=== PATIENT | female | born 1975 | race Caucasian/White ===

== ENCOUNTER 2020-04-05 15:15 | Outpatient (CLI) | payer BC, SELFPAY ==
--- NOTE | ~2020-04-05 | MM_ITS ---
EXAMINATION: MM screening juvencio BI w david HISTORY: Screening TECHNIQUE: Craniocaudal and mediolateral oblique 3-D tomosynthesis images were obtained and synthetic 2-D images were generated. CAD analysis was submitted and interpreted. COMPARISON: No prior mammogram is available for comparison at this institution. BREAST PARENCHYMAL COMPOSITION: There are scattered areas of fibroglandular density. FINDINGS: There is no evidence of suspicious mass, calcification, or architectural distortion to sugg est malignancy in either breast. There has been no suspicious interval change. IMPRESSION: 1. No mammographic evidence of malignancy. 2. Recommend routine screening mammography in one year. BI-RADS Category 1: Negative Reviewed, dictated and finalized at location A.
== END 2020-04-05 15:16 | disposition home or self-care (01) ==
LOC: ANHIMG 15:17
PROVIDERS: PCP Internal Medicine; Visit Provider Physician Assistant
DX: Z12.31 Encounter for screening mammogram for malignant neoplasm of breast (principal)
CPT/HCPCS: 77063; 77067

== ENCOUNTER 2020-11-19 04:12 | Emergency (ER) | payer BC, SELFPAY ==
[2020-11-19] VITALS (11 sets, daily range): BP systolic 136–169; BP diastolic 71–98; PULSE 67–85; RESP 14–24; O2SAT 94–100
--- NOTE | ~2020-11-19 | CT_ITS ---
EXAMINATION: CT abdomen pelvis wo con DATE: 11/19/2020 05:13 INDICATION: Left flank pain. TECHNIQUE: Computed tomography (CT) of the abdomen and pelvis was performed without intravenous contr ast. Automated exposure control and iterative reconstruction technique were employed. The dose-length product was 1277.75 mGy-cm. COMPARISON: None. FINDINGS: The visualized portions of the lung bases demonstrate mild atelectasis. No pleural effusion . The heart size is normal. No pericardial effusion. The liver, gallbladder, spleen, pancreas, adrena l glands, and right kidney are normal. There is mild left hydronephrosis and hydroureter. There is a 2 mm calcification at the left ureterovesicular junction. Pelvic floor relaxation is noted. There are no dilated loops of bowel. The appendix is not visualized. There are no pathologically enlarged lymp h nodes. There is no free intraperitoneal fluid. There is mild thoracolumbar spondylosis. IMPRESSION: 1. 2 mm stone at the left ureterovesicular junction with mild left hydronephrosis and hydroureter. Reviewed, dictated and finalized at location A. IMPRESSION: 1. 2 mm stone at the left ureterovesicular junction with mild left hydronephro sis and hydroureter.
[2020-11-19] MEDS: KETOROLAC 30 MG/ML VIAL (*BKC) IV PUSH (04:27)
[2020-11-19] MEDS: SODIUM CHLORIDE 0.9% IV 1,000 ML 999 ML IV CONT (04:27)
[2020-11-19] MEDS: MORPHINE SULFATE (*CRX) 4 MG/ML INJ IV PUSH ×2 (04:29→06:58)
[2020-11-19 04:37] LABS: Basophils Percent Auto 0.3 % (0.2-1.2); Eosinophils Absolute Auto 0.2 K/mm3 (0-0.3); Eosinophils Percent Auto 2.8 % (0-4.4); Hematocrit 39.6 % (37.0-47.0); Hemoglobin 12.2 g/dL (12.0-15.0); Immature Granulocyte Absolute 0.04 K/mm3 (0.00-0.031); Immature Granulocyte Percent A 0.5 % (0-0.5); Lymphocytes Absolute Auto 2.37 K/mm3 (0.9-3.2); Lymphocytes Percent Auto 31.6 % (18.3-44.2); Mean Corpuscular HGB Conc 30.8 g/dl (32-36); Mean Corpuscular Hemoglobin 25.3 pg (26-34); Mean Platelet Volume 9.8 fl (7.4-10.4); Monocytes Absolute Auto 0.5 K/mm3 (0.1-0.6); Monocytes Percent Auto 6.4 % (2.6-8.5); Neutrophils Absolute Auto 4.4 K/mm3 (1.3-6.7); Neutrophils Percent Auto 58.4 % (45.5-73.1); Platelet Count Result 335 k/mm3 (150-375); Red Blood Count 4.83 M/mm3 (4.2-5.4); Red Cell Distribution Width 14.4 % (11.5-14.5); White Blood Count 7.5 K/mm3 (4.5-10.0)
[2020-11-19 04:48] LABS: Anion Gap 10 mmol/L (8-16); Blood Urea Nitrogen 16 mg/dL (7-17); Calcium 9.4 mg/dL (8.4-10.2); Carbon Dioxide 26 mmol/L (22-30); Chloride 107 mmol/L (98-107); Estimated CRCL calculation 98 ml/min; Estimated Glomerular Filt Rate > 60; Glucose 148 mg/dL (65-105); Potassium 3.4 mmol/L (3.4-5.0); Sodium 143 mmol/L (137-145)
[2020-11-19 05:06] LABS: Add Urine Microscopic? YES; Appearance Urine Clear (Clear); Bilirubin Urine Negative (Negative); Blood Urine 2+ (Negative); Color Urine Yellow (Yellow); Glucose Urine UA 1+ mg/dL (Negative); Ketones Urine Negative (Negative); Leukocyte Esterase Ur Negative LEU/UL (Negative); Mucus Urine Moderate /lpf; Nitrate Urine Negative (Negative); Protein Urine 2+ mg/dL (Negative); RBC Urine 51-75 /hpf (0-2); Specific Grav Ur 1.027 (1.001-1.035); Squamous Epithelial Cell Urine Occasional /hpf (Few); WBC Urine 0-3 /hpf
--- NOTE | 2020-11-19 05:33 | ED.ABDPAIN ---
HPI - Abdominal Pain General Chief Complaint: Abdominal Pain <Edwardo Barrera MD - Last Filed: 11/19/20 19:16> Stated Complaint: left flank pain <Edwardo Barrera MD - Last Filed: 11/19/20 19:16> Time Seen by Provider: 11/19/20 04:16 <Edwardo Barrera MD - Last Filed: 11/19/20 19:16> History of Present Illness HPI narrative: Patient is a 45-year-old female who presents ER with sudden onset abdominal pain. Began in her left back and is radiating down into her lower abdomen. Severe nature. No aggravating or alleviating factors. Has had some nausea. No diaphoresis. No history of kidney stones. Denies urinary frequency/urgency/hematuria. <Edwardo Barrera MD - Last Filed: 11/19/20 19:16> Related Data Allergies/Adverse Reactions: Allergies Allergy/AdvReac Type Severity Reaction Status Date / Time doxycycline Allergy Severe SOB, Verified 11/19/20 04:24 hives, rash erythromycin base Allergy Severe SOB Verified 11/19/20 04:24 heparin Allergy Severe High blood Verified 11/19/20 04:24 pressure and anaphylaxis latex Allergy Severe SOB Verified 11/19/20 04:24 shellfish derived Allergy Intermediate hands go Verified 11/19/20 04:24 numb Penicillins Allergy Mild Hives Verified 11/19/20 04:24 strawberry Allergy Mild Rash Verified 11/19/20 04:24 Sulfa (Sulfonamide Allergy Mild Unknown Verified 11/19/20 04:24 Antibiotics) <Edwardo Barrera MD - Last Filed: 11/19/20 19:16> Review of Systems Review of Systems: All systems reviewed & are unremarkable except as noted in HPI and below <Edwardo Barrera MD - Last Filed: 11/19/20 19:16> Constitutional: Constitutional: Denies chills and Denies fever(s) <Edwardo Barrera MD - Last Filed: 11/19/20 19:16> Gastrointestinal: Gastrointestinal: Reports abdominal pain, Reports nausea and Denies vomiting <Edwardo Barrera MD - Last Filed: 11/19/20 19:16> Genitourinary: Genitourinary: Denies hematuria, Denies nocturia, Denies dysuria and Reports flank pain <Edwardo Barrera MD - Last Filed: 11/19/20 19:16> PMFSH Past Medical History Medical History: Medical History (Updated 11/19/20 @ 07:40 by Shankar Rosales MD) Anxiety Asthma Diabetes type 2, controlled Hyperlipidemia Hypertension Seizure <Edwardo Barrera MD - Last Filed: 11/19/20 19:16> Surgical History Surgical History: Surgical History History of appendectomy History of hysterectomy <Edwardo Barrera MD - Last Filed: 11/19/20 19:16> Family History Family History: Family History Mother Diabetes mellitus Patient's mother is in good health Father Patient's father is Malignant neoplasm of prostate Family history of malignant neoplasm of bone Sibling Patient's sister is in good health Grandparent Family history of lung cancer Family history of malignant neoplasm of breast in first degree relative Family history of malignant neoplasm of kidney <Edwardo Barrera MD - Last Filed: 11/19/20 19:16> Social History Social History: Social History Smoking packs per day: 2 Smoking cigarettes per day: 40.0 Years smoked: 10 Smoking pack-years: 20.00 Smoking status: Former smoker Second hand tobacco smoke exposure: No Alcohol intake: never Substance use: never <Edwardo Barrera MD - Last Filed: 11/19/20 19:16> Exam Narrative: Exam Narrative: GENERAL: Uncomfortable-appearing, well-nourished, and in moderate distress. HEAD: Normocephalic, atraumatic. ENT: Mucous membranes moist. CHEST: Clear to auscultation. No respiratory distress. HEART: Regular rate and rhythm. Normal peripheral pulses. ABDOMEN: Soft, nontender, nondistended. EXTREMITIES: Normal range of motion. No edema. NEURO: Alert and oriented x3. PSYCH: Normal moo
== END 2020-11-19 07:54 | disposition home or self-care (01) ==
PROVIDERS: Emergency Medicine; Emergency Provider Emergency Medicine; PCP Internal Medicine
DX: N13.2 Hydronephrosis with renal and ureteral calculous obstruction (principal); J45.909 Unspecified asthma, uncomplicated; E11.9 Type 2 diabetes mellitus without complications; E78.5 Hyperlipidemia, unspecified; I10 Essential (primary) hypertension; Z79.84 Long term (current) use of oral hypoglycemic drugs; Z87.891 Personal history of nicotine dependence
CPT/HCPCS: 36415; 74176; 80048; 81001; 85025; 96374; 96375; 96376; 99284; J1885; J2270; J7030

== ENCOUNTER 2022-02-14 19:57 | Emergency (ER) | payer BC, SELFPAY ==
[2022-02-14] VITALS (20 sets, daily range): BP systolic 102–154; BP diastolic 50–103; PULSE 58; RESP 16; TEMP 37; O2SAT 91–100
--- NOTE | ~2022-02-14 | CT_ITS ---
EXAMINATION: CT abdomen pelvis w con DATE: 02/14/2022 21:22 INDICATION: Kidney stone, diverticulitis TECHNIQUE: Computed tomography (CT) of the abdomen and pelvis was performed with 100 mL Omnipaque-350 intravenous contrast. Automated exposure control and iterative reconstruction technique were employe d. The dose-length product was 1676.04 mGy-cm. COMPARISON: 11/19/2020. FINDINGS: Lower thorax: Left basilar atelectasis Liver: Steatosis. Hepatomegaly. Biliary/Gallbladder: Gallbladder is normal. No bile duct dilation. Pancreas: No mass or duct dilation. Spleen: Normal. Adrenals:No mass. Kidneys: No mass, stone, or hydronephrosis. Mild left perinephric stranding. Linear somewhat wedge-sh aped left lower pole hypodensities. 3 mm left UVJ calcification. Mild caliectasis and pelviectasis on the left. GI tract: No small or large bowel dilation. Appendix not visualized. Mesentery/Peritoneum: No ascites, mass, or free air. Retroperitoneum: No mass. Pelvis: Uterus is absent, otherwise the pelvic organs are within normal limits. Soft Tissues: Soft tissues and body wall unremarkable. Bones: No acute osseous finding. IMPRESSION: 3 mm left UPJ stone causing mild obstructive uropathy. Linear and wedge-shaped left inferior pole hyp odensities may represent pyelonephritis, acute focal nephritis, or less likely renal infarct. Reviewed, dictated and finalized at location K. IMPRESSION: 3 mm left UPJ stone causing mild obstructive uropathy. Linear and wedge-shaped left inferior pole hypodensities may represent pyelonephritis, acute focal neph ritis, or less likely renal infarct.
--- NOTE | 2022-02-14 20:24 | ED.ABDPAIN ---
HPI - Abdominal Pain General Chief Complaint: Abdominal Pain Stated Complaint: abd pain Time Seen by Provider: 02/14/22 20:22 Source: patient and family Mode of arrival: ambulatory Limitations: no limitations History of Present Illness HPI narrative: 47 years old white female presents with sudden onset of left lower quadrant pain radiating to left flank pain 1-1/2-hour prior to arrival to the emergency room associated with nausea. Patient denies any fever, chills, vomiting or urinary symptoms. History of kidney stone, hypertension, hyperlipidemia, diabetes, asthma, depression. Patient does not smoke or drink or uses drugs. Related Data Allergies Allergy/AdvReac Type Severity Reaction Status Date / Time doxycycline Allergy Severe SOB, Verified 02/14/22 19:57 hives, rash erythromycin base Allergy Severe SOB Verified 02/14/22 19:57 heparin Allergy Severe High blood Verified 02/14/22 19:57 pressure and anaphylaxis latex Allergy Severe SOB Verified 02/14/22 19:57 shellfish derived Allergy Intermediate hands go Verified 02/14/22 19:57 numb Penicillins Allergy Mild Hives Verified 02/14/22 19:57 strawberry Allergy Mild Rash Verified 02/14/22 19:57 Sulfa (Sulfonamide Allergy Mild Unknown Verified 02/14/22 19:57 Antibiotics) Review of Systems Review of Systems: All systems reviewed & are unremarkable except as noted in HPI and below PMFSH Past Medical History Medical History Anxiety Asthma Diabetes type 2, controlled Hyperlipidemia Hypertension Seizure Surgical History Surgical History History of appendectomy History of hysterectomy Family History Family History Mother Diabetes mellitus Patient's mother is in good health Father Patient's father is Malignant neoplasm of prostate Family history of malignant neoplasm of bone Sibling Patient's sister is in good health Grandparent Family history of lung cancer Family history of malignant neoplasm of breast in first degree relative Family history of malignant neoplasm of kidney Social History Social History Smoking packs per day: 2 Smoking cigarettes per day: 40.0 Years smoked: 10 Smoking pack-years: 20.00 Smoking status: Former smoker Second hand tobacco smoke exposure: No Alcohol intake: never Substance use: never Exam Narrative: General appearance: Well-developed, well-nourished Skin: Normal color Head: Normocephalic, nontraumatic Eyes: Clear conjunctiva ENT: Oropharynx normal, ears normal, nose normal Neck: Supple, nontender Chest and respiratory: Airway patent, no respiratory distress, no accessory muscle use Heart: Regular rate/rhythm Abdomen: Soft, mild to moderate tenderness left lower quadrant and left flank area, no guarding or rebound, quiet bowel sounds Vascular: Normal peripheral pulses, normal capillary refill. Musculoskeletal: Normal range of motion, nontender back Neurologic: Alert and oriented ?3, [employer] is normal as tested, no gross motor deficit Course Vital Signs Vital signs: Vital Signs Temperature 98.6 F 02/14/22 19:59 Pulse Rate 58 L 02/14/22 19:59 Respiratory Rate 16 02/14/22 19:59 Blood Pressure 154/66 H 02/14/22 19:59 Pulse Oximetry 100 02/14/22 19:59 Temperature 98.6 F 02/14/22 19:59 Pulse Rate 58 L 02/14/22 19:59 Respiratory Rate 16 02/14/22 19:59 Blood Pressure 125/50 L 02/14/22 23:31 Pulse Oximetry 93 02/14/22 23:31 MDM - Abdominal Pain Lab D
[2022-02-14] MEDS: ONDANSETRON INJ 4 MG/2 ML VIAL IV PUSH (20:44)
[2022-02-14] MEDS: SODIUM CHLORIDE 0.9% IV 1,000 ML 999 ML IV CONT (20:44)
[2022-02-14] MEDS: HYDROmorphone HCL INJ (*CRX) 1 MG/ML SYR 0.5 MG IV PUSH ×2 (20:44→21:34)
[2022-02-14 20:53] LABS: Basophils Absolute Auto 0.1 K/mm3 (0.0-0.1); Basophils Percent Auto 0.5 % (0.2-1.2); Eosinophils Absolute Auto 0.2 K/mm3 (0-0.3); Eosinophils Percent Auto 1.5 % (0-4.4); Hematocrit 41.4 % (37.0-47.0); Hemoglobin 13.1 g/dL (12.0-15.0); Immature Granulocyte Absolute 0.06 K/mm3 (0.00-0.031); Immature Granulocyte Percent A 0.6 % (0-0.5); Lymphocytes Absolute Auto 1.95 K/mm3 (0.9-3.2); Lymphocytes Percent Auto 18.7 % (18.3-44.2); Mean Corpuscular HGB Conc 31.6 g/dl (32-36); Mean Corpuscular Hemoglobin 25.6 pg (26-34); Mean Corpuscular Volume 80.9 fl (80-100); Mean Platelet Volume 10.7 fl (7.4-10.4); Monocytes Absolute Auto 0.4 K/mm3 (0.1-0.6); Neutrophils Absolute Auto 7.8 K/mm3 (1.3-6.7); Neutrophils Percent Auto 74.7 % (45.5-73.1); Platelet Count Result 287 k/mm3 (150-375); Red Blood Count 5.12 M/mm3 (4.2-5.4); Red Cell Distribution Width 14.2 % (11.5-14.5); White Blood Count 10.4 K/mm3 (4.5-10.0)
[2022-02-14 21:05] LABS: Alanine Aminotransferase 27 U/L (6-35); Albumin Level 4.6 g/dL (3.5-5.1); Alkaline Phosphatase 71 U/L (38-126); Anion Gap 15 mmol/L (8-16); Aspartate Amino Transferase 36 U/L (14-36); Bilirubin,Total 0.4 mg/dL (0.2-1.3); Blood Urea Nitrogen 16 mg/dL (7-17); Calcium 9.9 mg/dL (8.4-10.2); Carbon Dioxide 20 mmol/L (22-30); Chloride 101 mmol/L (98-107); Estimated CRCL calculation 95 ml/min; Estimated Glomerular Filt Rate > 60; Glucose 221 mg/dL (65-110); Lipase 67 U/L (23-300); Sodium 136 mmol/L (137-145)
[2022-02-14 22:46] LABS: Appearance Urine Clear (Clear); Bilirubin Urine Negative (Negative); Blood Urine 3+ (Negative); Color Urine Yellow (Yellow); Glucose Urine UA Trace mg/dL (Negative); Ketones Urine Negative (Negative); Leukocyte Esterase Ur Negative LEU/UL (Negative); Nitrate Urine Negative (Negative); Protein Urine Trace mg/dL (Negative); Urobilinogen Urine 0.2 mg/dL (<2.0); pH Urine 5.5 (5.0-9.0)
[2022-02-14 23:09] LABS: Mucus Urine Rare /lpf; RBC Urine >75 /hpf (0-2); Squamous Epithelial Cell Urine Rare /hpf (Few)
[2022-02-14] MEDS: HYDROcodone/acetaminophen (*CRX) 5-325 MG TABLET 2 TAB PO (23:12)
[2022-02-14] MEDS: KETOROLAC 30 MG/ML VIAL (*BKC) (23:13)
[2022-02-14 23:14] LABS: Add Urine Microscopic? YES
[2022-02-15] VITALS: BP 95/55; O2SAT 95
[2022-02-15 00:01] VITALS: O2SAT 92
[2022-02-15 00:15] VITALS: BP 107/59; O2SAT 94
[2022-02-15 00:16] VITALS: O2SAT 94
[2022-02-15 00:30] VITALS: BP 108/59; O2SAT 97
--- NOTE | 2022-02-15 00:37 | PC.NURSE ---
Called lab and was reported no WBCs in urine. notified
[2022-02-15 00:46] VITALS: BP 102/55; O2SAT 94
== END 2022-02-15 01:02 | disposition home or self-care (01) ==
PROVIDERS: Emergency Medicine; Emergency Provider Emergency Medicine; PCP Physician Assistant
DX: N13.9 Obstructive and reflux uropathy, unspecified (principal); N20.1 Calculus of ureter; I10 Essential (primary) hypertension; E78.5 Hyperlipidemia, unspecified; J45.909 Unspecified asthma, uncomplicated; E11.9 Type 2 diabetes mellitus without complications; F32.A Depression, unspecified; Z87.442 Personal history of urinary calculi; Z87.891 Personal history of nicotine dependence; Z79.84 Long term (current) use of oral hypoglycemic drugs
CPT/HCPCS: 36415; 51701; 74177; 80053; 81001; 83690; 85025; 96361; 96374; 96375; 96376; 99284; A9270; J1170; J1885; J2405; J7030; Q9967

== ENCOUNTER 2022-02-16 15:27 | Outpatient (CLI) | payer BC, SELFPAY ==
--- NOTE | ~2022-02-16 | XR_ITS ---
EXAMINATION: XR abdomen/kub 1V INDICATION: Left ureteral stone TECHNIQUE: Supine views of the abdomen were obtained on 2 radiographs. COMPARISON: CT, 02/14/2022 FINDINGS: The previously described left ureteral stone appears to project over the left L3 transverse process. A moderate volume of colonic stool is present. Phleboliths are noted in the pelvis. The vis ualized osseous structures are unremarkable. IMPRESSION: 1. Possible left ureteral stone projecting over the left L3 transverse process. Reviewed, dictated and finalized at location B.
== END 2022-02-16 15:28 | disposition home or self-care (01) ==
PROVIDERS: PCP Physician Assistant; Visit Provider Nurse Practitioner Adult Health
DX: N20.1 Calculus of ureter (principal)
CPT/HCPCS: 74018

== ENCOUNTER 2022-02-20 01:44 | Day surgery (SDC) | payer BC, SELFPAY ==
--- NOTE | 2022-02-19 08:55 | PC.NURSE ---
Report to the Outpatient Waiting Room, entrance under the green pavilion located off [facility], at time _1000 on date _02/20/22 . OR Time: _1200 . - You and your visitor will be asked to self-screen and do not enter if you have any COVID symptoms. - Only one visitor and NO children visitors are allowed at this time. - The patient visitor is requested to leave or wait in car when not with patient due to restrictions. - A mask is required within the hospital. Patients may have clear liquids (water, carbonated beverages, clear teas, apple juice) until 3 hours prior to surgery with a maximum of 20 ounces. - No food from midnight until time of surgery - Infants may have breast milk until 4 hours before surgery, infant formula 6 hours prior to surgery. - Children will be allowed to drink immediately following surgery. If applicable, please bring a bottle or sippy cup to assist with drinking. Juice, water, soda, and popsicles are readily available. For infants on formula, please bring formula the day of surgery. Pacifiers are allowed. Take the following medications with a SIP of water the morning of surgery: ___LORAZEPAM IF NEEDED,SERTRALINE Medications to discontinue per physician NONE Date to take last dose Please no make-up, nail citizen of [place], hairspray, perfume, deodorant, or body powder the day of surgery. No jewelry (including any body piercings) or valuables the day of surgery, leave them at home. Please take a shower or bath the night before, or the morning of, surgery with an antibacterial soap. Wear comfortable, loose fitting clothing. Children are encouraged to wear pajamas. - Jewelry must be removed prior to entering the operating room. Rings and piercings that are not removed may be cut off. - The hospital will not accept responsibility for valuables. - Please leave all valuables, including medications, at home the day of surgery. If you are going home after surgery, a licensed wedding transportation driver must drive you home. - NO public transportation without another adult. - We recommend that an adult stay with you for 24 hours following discharge. - We also recommend that you do not drive, make important decision, drink alcoholic beverages, or take any drugs that were not prescribed by your health care provider for at least 24 hours after your discharge time. For Pediatric surgeries, we recommend two adults accompany the child home (only one inside the building at this time). Follow any additional instructions given to you from your surgeon. If you or anyone in your household have experienced Covid symptoms in the past week, please notify your surgeon or the nurse liaison at the phone number below for possible testing. Telephone instructions given to __PATIENT and asked if any additional questions and then verbalized understanding. Patient advised to call surgeon office or pre surgery nurse liaison [phone] if any additional questions.
[2022-02-19 09:13] VITALS: BMI 47.8
--- NOTE | 2022-02-19 13:18 | WPDANESEPPF ---
Anes - Initial Pre Proc Eval Procedure: Operation Date: 02/20/22 12:00 Proposed Procedures p Cystoscopy, Left Ureteroscopy, Possible Left Retrograde Pyelogram, Possible Left Stone Extraction, Possible Left Stent Placement, Possible Holmium Laser Procedure - Norm Hinkle MD Date/Time: 02/19/22 13:18 Surgeon: Norm Hinkle MD Pre Op Diagnosis: left ureteral stone Patient Data Age: 47 Gender: F Height: 1.6 m Weight: 122.5 kg Allergies Allergy/AdvReac Type Severity Reaction Status Date / Time doxycycline Allergy Severe SOB, Verified 02/19/22 08:42 hives, rash erythromycin base Allergy Severe SOB Verified 02/19/22 08:42 heparin Allergy Severe High blood Verified 02/19/22 08:42 pressure and anaphylaxis latex Allergy Severe SOB Verified 02/19/22 08:42 shellfish derived Allergy Intermediate hands go Verified 02/19/22 08:42 numb Penicillins Allergy Mild Hives Verified 02/19/22 08:42 strawberry Allergy Mild Rash Verified 02/19/22 08:42 Sulfa (Sulfonamide Allergy Mild Unknown Verified 02/19/22 08:42 Antibiotics) Home Medications Medication Instructions Recorded Confirmed Type lisinopril 10 1 tablet PO DAILY #90 tabs 03/01/21 02/19/22 Rx mg-hydrochlorothiazide 12.5 mg tablet zolpidem 10 mg tablet 10 mg PO QHS PRN insomnia #20 tabs 10/11/21 02/19/22 Rx lorazepam 0.5 mg tablet 0.5 mg PO DAILY PRN anxiety #10 12/08/21 02/19/22 Rx tabs pravastatin 40 mg tablet See Rx Instructions .Route 12/29/21 02/19/22 Rx .COMPLEX #30 tabs sertraline 50 mg tablet 50 mg PO DAILY #90 tabs 01/16/22 02/19/22 Rx acetaminophen 500 mg tablet 1,000 mg PO TID PRN syeda 7 days #42 02/15/22 02/19/22 Rx tabs hydrocodone 5 mg-acetaminophen 325 1 tablet PO Q4H PRN pain 3 days 02/15/22 02/19/22 Rx mg tablet #10 tabs ibuprofen 800 mg tablet 800 mg PO TID PRN pain 7 days #21 02/15/22 02/19/22 Rx tabs ondansetron 4 mg disintegrating 4 mg PO Q8H PRN nausea and 02/15/22 02/19/22 Rx tablet vomiting #10 tabs albuterol sulfate 90 mcg/actuation 2 inh inhalation Q4H PRN Shortness 02/19/22 02/19/22 History breath activated powder inhaler Of Breath metformin 500 mg tablet,extended 500 mg PO BID #90 tabs 02/19/22 Rx release 24 hr Patient hx anesthesia problems: none Family hx anesthesia problems: none Results Review: All pre-operative results and documents have been reviewed as part of the pre-operative evaluation. [facility] Past Medical History Medical History Anxiety Asthma Diabetes type 2, controlled Hyperlipidemia Hypertension Seizure Surgical History Surgical History History of appendectomy History of hysterectomy Family History Family History Mother Diabetes mellitus Patient's mother is in good health Father Patient's father is Malignant neoplasm of prostate Family history of malignant neoplasm of bone Sibling Patient's sister is in good health Grandparent Family history of lung cancer Family history of malignant neoplasm of breast in first degree relative Family history of malignant neoplasm of kidney Social History Social History Smoking packs per day: 2 Smoking cigarettes per day: 40.0 Years smoked: 10 Smoking pack-years: 20.00 Smoking status: Former smoker Tobacco type: cigarettes Second hand tobacco smoke exposure: No Smoking end date: 06/24/99 Alcohol intake: never Substance use: never Living arrangements: with family Spiritual care concerns: No Anes - Eval Final PreProcedure Day of Procedure 02/19/22 13:18 Patient weight: morbidly obese Heart: regular rate and rhythm Lungs: clear to auscultation and normal air movement Airway: Mallampati scale class II Neurological: alert and oriented [place]
[2022-02-20] VITALS (13 sets, daily range): BP systolic 126–153; BP diastolic 73–86; PULSE 54–80; RESP 10–25; TEMP 36.7–37.2; O2SAT 94–100
--- NOTE | ~2022-02-20 | XR_ITS ---
EXAMINATION: XR retrograde pyelo w/stent LT DATE: 02/20/2022 13:15 CDT INDICATION: RETRO/STENT STONE EXTRACTION . TECHNIQUE: 5 fluoroscopic images of the abdomen and pelvis were obtained during left retrograde pyelo graphy with stent placement performed by the surgeon. I was not present in the operating room. Fluoro scopy exposure time was 12.5 seconds. Cumulative dose was 0.03924 mGy2. COMPARISON: CT abdomen and pelvis 02/20/2022 FINDINGS: Cannulation, wire access contrast filling of the left collecting system. Suggestion of calyceal blunt ing. Following stent deployment, proximal coil in the renal pelvis, distal coil urinary bladder. IMPRESSION: Fluoroscopic documentation of left retrograde pyelography with stent placement. Please refer to the o perative note for complete procedural details . Reviewed, dictated and finalized at location K. IMPRESSION: Fluoroscopic documentation of left retrograde pyelography with stent placement. Please refer to the operative note for complete procedural details .
--- NOTE | ~2022-02-20 | CT_ITS ---
EXAMINATION: CT abdomen pelvis wo con DATE: 02/20/2022 11:06 INDICATION: Left ureteral stone. TECHNIQUE: Computed tomography (CT) of the abdomen and pelvis was performed without intravenous contr ast. Automated exposure control and iterative reconstruction technique were employed. The dose-length product was 1522.49 mGy-cm. COMPARISON: CT abdomen and pelvis 02/14/2022 FINDINGS: The visualized portions of the lung bases demonstrate minimal atelectasis. No pleural effus ion. The heart size is normal. No pericardial effusion. There is diffuse hepatic steatosis. The gallb ladder, spleen, pancreas, adrenal glands, and kidneys are normal. There is a 3 mm stone in distal lef t ureter. There are no dilated loops of bowel. The appendix is not visualized. There are no pathologi felicia enlarged lymph nodes. There is no free intraperitoneal fluid. There is mild thoracolumbar spond ylosis. IMPRESSION: 1. 3 mm stone in distal left ureter. No hydronephrosis. Reviewed, dictated and finalized at location A.
--- NOTE | 2022-02-20 09:36 | ECG_ITS ---
Measurements Intervals [place] Rate: 63 P: 34 PA: 182 QRS: 12 QRSD: 104 T: 21 QT: 424 QTc: 437 Interpretive Statements SINUS RHYTHM NO PREVIOUS ECG AVAILABLE FOR COMPARISON Electronically Signed On 02-20-2022 11:43:49 CDT by Andrés Sam M.D.
[2022-02-20 10:47] LABS: Glucose Point of Care 127 mg/dl (65-105)
[2022-02-20] MEDS: LACTATED RINGERS 1,000 ML 30 ML IV CONT (11:00)
[2022-02-20] MEDS: SCOPOLAMINE 1.5 MG PATCH TRANSDERM (12:29)
--- NOTE | 2022-02-20 12:52 | WPDHPUPDATE1 ---
History and Physical Update Update Date/Time: 02/20/22 12:52 History and Physical has been reviewed, including an updated exam of the patient. There are NO changes in the patient's condition. Risks, benefits, and alternatives have been discussed and questions answered. Patient agrees to proceed with procedure. Proceed with cystoscopy, left retrograde pyelogram, left ureteroscopy with stone extraction, possible laser stent placement.
[2022-02-20] MEDS: ceFAZolin 3 GM/D5W 100 ML 100 ML IVPB (13:19)
[2022-02-20] MEDS: LIDOCAINE HCL 2% GEL UROJET 10 ML PKG MUCOUS MEM (13:44)
--- NOTE | 2022-02-20 13:55 | W.PM.PROC2 ---
Procedure Note - Detailed Date of Procedure 02/20/22 Pre-op Diagnosis left ureteral stone Post-op Diagnosis Same Procedure Performed Cystoscopy, left retrograde pyelogram, left ureteroscopy with stone extraction, left stent placement 4.8 Norwegian contour Surgeon Norm Hinkle MD Anesthesia General Description of Procedure Patient is taken the operative suite correctly identified. Once anesthesia was obtained she was placed in dorsal lithotomy position and prepped and draped usual sterile fashion. Twenty-two Norwegian scope was inserted the bladder. There were no tumors noted. I could not cannulate a wire past the stone using the cystoscope. I thus used a rigid ureteral scope to into the orifice. A wire was placed alongside the stone. We then used an escape basket to retrieve the stone 1 piece. Reinspection revealed no residual stones. Pyelogram was then performed to confirm placement of the stent in the renal pelvis. 4.8 Norwegian contour stent was then placed with the proximal end coiled in the renal pelvis and the distal in the bladder. Bladder was drained. 2% viscous lidocaine was inserted into the urethra patient is taken recovery stable condition. She will follow-up in 1-2 weeks for cystoscopy with stent removal in the office and is to call for that appointment. Drains Yes Packing No Pathology Yes Complications No immediate complications Condition Stable Disposition PACU
[2022-02-20] MEDS: ONDANSETRON INJ 4 MG/2 ML VIAL IV PUSH (14:02)
[2022-02-20 14:12] LABS: Glucose Point of Care 134 mg/dl (65-105)
[2022-02-20] MEDS: fentaNYL CITRATE INJ (*CRX) 100 MCG/2 ML VIAL 25 MCG IV PUSH ×4 (14:17→14:55)
[2022-02-20] MEDS: ALBUTEROL SULFATE NEB 2.5 MG/3 ML INH 5 MG INHALATION (15:01)
--- NOTE | 2022-02-20 15:06 | SUR.PHASEI ---
respiratory treatment albuterol given.
[2022-02-20] MEDS: OXYBUTYNIN CHLORIDE 5 MG TABLET PO (15:21)
[2022-02-20] MEDS: oxyCODONE HCL (*CRX) 5 MG TAB IR PO (15:56)
== END 2022-02-20 16:40 | disposition home or self-care (01) ==
PROVIDERS: PCP Physician Assistant; Visit Provider Urology
PROC: (CPT 52352; principal; 2022-02-20 12:00)
DX: N20.1 Calculus of ureter (principal); Z79.84 Long term (current) use of oral hypoglycemic drugs; F41.9 Anxiety disorder, unspecified; E11.9 Type 2 diabetes mellitus without complications; I10 Essential (primary) hypertension; E78.5 Hyperlipidemia, unspecified; R56.9 Unspecified convulsions; J45.909 Unspecified asthma, uncomplicated; Z87.891 Personal history of nicotine dependence; E66.01 Morbid (severe) obesity due to excess calories; Z68.42 Body mass index [BMI] 45.0-49.9, adult
CPT/HCPCS: 52332; 52352; 74176; 74420; 82365; 82948; 88300; 93005; 94640; A9270; C1758; C1769; C2617; J0690; J1100; J2250; J2405; J2704; J3010; J7120

== ENCOUNTER → 2022-04-04 10:43 | Outpatient (CLI) | payer BC, SELFPAY ==
--- NOTE | ~2022-04-04 | US_ITS ---
EXAMINATION: US retroperitoneal comp DATE: 04/04/2022 12:02 INDICATION: Lt ureteral stone TECHNIQUE: Multiple grayscale and Doppler ultrasound images of the retroperitoneum were obtained. COMPARISON: CT 02/20/2022. FINDINGS: The right kidney measures 10.3 x 5.5 x 4.8 cm. The left kidney measures 10.7 x 6.7 x 5.0 cm. The kidn eys demonstrate normal parenchymal echogenicity. There is mild left pelviectasis. The bladder is part ially filled and grossly normal. IMPRESSION: Mild left pelviectasis. Reviewed, dictated and finalized at location K. IMPRESSION: Mild left pelviectasis.
== END ==
PROVIDERS: PCP Physician Assistant; Visit Provider Nurse Practitioner Adult Health
DX: N20.1 Calculus of ureter (principal); N73.8 Other specified female pelvic inflammatory diseases
CPT/HCPCS: 76770

== ENCOUNTER → 2022-07-03 12:47 | Outpatient (CLI) | payer BC, SELFPAY ==
--- NOTE | ~2022-07-03 | MM_ITS ---
EXAMINATION: MM screening juvencio BI w david HISTORY: Screening mammogram TECHNIQUE: Craniocaudal and mediolateral oblique 3-D tomosynthesis images were obtained and synthetic 2-D images were generated. CAD analysis was submitted and interpreted. COMPARISON: 04/05/2020 bilateral screening mammogram BREAST PARENCHYMAL COMPOSITION: The breasts are almost entirely fatty. FINDINGS: There is no evidence of suspicious mass, calcification, or architectural distortion to sugg est malignancy in either breast. There has been no suspicious interval change. IMPRESSION: 1. No mammographic evidence of malignancy. 2. Recommend routine screening mammography in one year. BI-RADS Category 1: Negative Reviewed, dictated and finalized at location A. OOD LAYUP LINE CORE LAYER
== END ==
PROVIDERS: PCP Physician Assistant; Visit Provider Physician Assistant
DX: Z12.31 Encounter for screening mammogram for malignant neoplasm of breast (principal)
CPT/HCPCS: 77063; 77067

== ENCOUNTER 2024-09-28 13:39 | Outpatient (CLI) | payer BC, SELFPAY ==
--- NOTE | ~2024-09-28 | XR_ITS ---
MODIFIED ESOPHAGRAM HISTORY: Dysphagia. TECHNIQUE: Modified barium esophagram was performed on 09/28/2024. I administered fluoroscopy and perfo rmed the exam with speech pathologist. Patient was seated for lateral fluoroscopic imaging for inges tion of thin liquids, pudding, solids and quantified amounts, followed by thin liquids in uncontrolle d amounts. This was recorded on tape. A single fluoroscopic spot image was also recorded. The DAP for this procedure was 1.1 Gycm2. The amount of fluoroscopy time used during this procedure was 1.2 donn jazz. FINDINGS: Oral stage: Adequate function. Pharyngeal stage: Adequate function. Cervical/esophageal stage: Adequate function. IMPRESSION: Patient tolerated regular consistency oral feedings in the upright position. Please larissa elate with speech pathologist findings and specific feeding recommendations. Reviewed, dictated and finalized at location A. IMPRESSION: Patient tolerated regular consistency oral feedings in the upright position. Please correlate with speech pathologist findings and specific feedi ng recommendations.
--- NOTE | 2024-09-28 14:44 | REHSTMBS ---
Assessment and note entered by Jenny Pinon, HOUSING MANAGEMENT REPRESENTATIVE Modified Barium Swallow Evaluation Feeding Type Recommended Oral Food Consistency Regular, Level 7 Liquid Consistency Thin (0) ST Clinical Summary The above pleasant and cooperative pt. was seen for an outpatient modified barium swallow. She was alert & oriented, and able to follow commands. She is currently on a regular diet and reports occasional difficulty in that food and liquid get caught in her throat. Oral mucosa is normal; natural dentition is in fair condition; Informal oral peripheral exam revealed lingual and labial structures to be normal. she was able to dry swallow on command and exhibited clear vocal quality. The patient was seated for a lateral view and presented with 5cc of thin liquid barium via spoon , pudding consistency barium via a spoon, cracker coated with barium pudding via spoon, and uncontrolled thin liquid barium. This was presented via a cup & straw. Oral preparatory and oral phase symptoms: none. Pharyngeal phase symptoms: none. Esophageal stage symptoms: none. Overall, no aspiration. residue occurred. Impressions: Normal swallow Ability No further ST is warranted at this time.
--- OUTSIDE RECORDS SUMMARY | 2024-09-28 15:39 | XMS_ITS | CONTINUITY OF CARE DOCUMENT ---
Author Name yuki thaimonica Address Unknown Organization [facility] Address [address] [place] [address] Phone [phone] Care Team Providers Care Boring Machine Operator Horizontal Name Role Phone Juan C Dejesus MD Unavailable [phone] Juan C Dejesus MD Unavailable [phone] DEISY COPELAND NP Unavailable PROBLEMS Condition Status Date Provider Notes Cardiology examination active Alonso Paige ri Abnormal nuclear stress test active Alonso Elan CHEST PAIN active Alonso Elan Hypertension active Alonso Elan Hyperlipidemia active Alonso Elan Obesity active Alonso Elan ENCOUNTERS Date Type Provider Location Encounter Diag nosis - In-person encounter Office Visit Juan C Dejesus MD [facility] - In-person encounter Office Visit Juan C Dejesus MD [facility] - In-person encounter Office Visit Juan C Dejesus MD [facility] Cardiology examinationAbnormal nuclear stress testCHEST PAINHypertensionHyperlipidemiaObesity VITAL SIGNS Date Observation Value Provider Body Mass Index (Ratio) 43.93 kg/m2 Juan C Dejesus MD blood pressure, diastolic 86 mm[Hg] Meryl Lopez blood pressure, systolic 115 mm[Hg] Chandrika Lopez oxygen saturation, oximetry 98 % Bettina Lopez pulse rate 70 /min Bettina Lopez respiratory rate E&M 12 /min Bettina Lopez weight E&M 248 [lb_av] Bettina Lopez height E&M 63 [in_i] Bettina Lopez blood pressure, cuff size regular Meryl Lopez Body Mass Index (Ratio) 45.52 kg/m2 [facility] blood pressure, cuff size regular Ja rret blood pressure, diastolic 81 mm[Hg] Ja rret blood pressure, systolic 127 mm[Hg] Jar ret pulse rate 80 /min Colin erda y oxygen saturation, oximetry 98 % Colin respiratory rate E&M 14 /min Colin weight E&M 257 [lb_av] Colin erda y height E&M 63 [in_i] Colin Easterda y Body Mass Index (Ratio) 44.10 kg/m2 [facility] Elan blood pressure, diastolic 75 mm[Hg] Latasha [facility] blood pressure, systolic 112 mm[Hg] Tamara [facility] blood pressure, cuff size regular Ja rret blood pressure, diastolic 75 mm[Hg] Ja rret blood pressure, systolic 112 mm[Hg] Jar ret pulse rate 77 /min Colin Easterda y height E&M 63 [in_i] Colin Easterda y oxygen saturation, oximetry 98 % Colin respiratory rate E&M 16 /min Colin weight E&M 249 [lb_av] Colin da y ALLERGIES Allergy Name Onset Date Reaction Criticality Status SHELLFISH Low Criticality active LATEX Low Criticality active HEPARIN Low Criticality active SULFA Low Criticality active PENICILLIN Low Criticality active RESULTS Date Observation Value Provider Reference Range Interpretation Location 7 basophil count, absolute 0.1 x10E3/uL [facility] 0.0-0.2 7 Eosinophil Absolute Count 0.4 X10E3/UL [facility] 0.0-0.4 7 monocyte count, blood, automated 0.5 X10E3/UL [facility] 0.1-0.9 7 lymphocyte count, blood, automated 2.8 X10E3/UL [facility] 0.7-3.1 7 Absolute Neutrophils 4.9 X10E3/UL [facility] 1.4-7.0 7 basophils as percent of blood leukocytes 1 % [facility] Not Estab. 7 eosinophils as percent of blood leukocytes 4 % [facility] Not Estab. 7 monocytes as percent of blood leukocytes 6 % [facility] Not Estab. 7 lymphocytes as percent of blood leukocytes 32 % [facility] Not Estab. 7 neutrophils as percent of blood leukocytes 56 % [facility] Not Estab. 7 platelet count 287 X10E3/UL [facility] [phone]/02/2 7 red blood cell distribution width 14.2 % [facility] 11.7-15.4 7 mean corpuscular hemoglobin concentration, RBC 31.7 G/DL [facility] 31.5-35.7 7 mean corpuscular hemoglobin, RBC 25.5 pg [facility] 26.6-33.0 Low 7 mean corpuscular volume, RBC 81 fL [facility] 79-97 7 hematocrit, blood 40.4 % [facility] 34.0-46.6 7 hemoglobin, blood 12.8 g/dL [facility] 11.1-15.9 7 erythrocyte (RBC) count 5.02 X10E6/UL [facility] 3.77-5.28 7 leukocyte count, blood 8.6 X10E3/UL [facility] 3.4-10.8 7 lipoprotein, beta, serum, point, quantitative, calculated 105 mg/dL [facility] 0-99 High 7 HDL cholesterol, serum 65 mg/dL [facility] >39 7 triglyceride, serum, random 133 mg/dL [facility] 0-149 7 cholesterol, serum 193 mg/dL [facility] [phone]/02/2 7 calcium, serum 9.6 mg/dL [facility] 8.7-10.2 7 carbon dioxide, venous blood 25 mmol/L [facility] 20-29 7 chloride, serum 100 mmol/L [facility] 96-106 7 potassium, serum 3.8 mmol/L [facility] 3.5-5.2 7 sodium, serum 139 mmol/L [facility] [phone]/02/2 7 urea nitrogen/creatinin e ratio, serum 17 [facility] 9-23 7 creatinine, serum 0.78 mg/dL [facility] 0.57-1.00 7 urea nitrogen, blood 13 mg/dL [facility] 6-24 7 blood glucose, random 111 mg/dL [facility] 70-99 High 7 prothrombin time (patient) 9.9 s [facility] 9.1-12.0 7 international normalized ratio (INR) 0.9 [facility] 0.9-1.2 HISTORY OF MEDICATION USE Medication Status Instructions Dates Provider Indications Com ments Ozempic 0.25 mg or 0.5 mg (2 mg/3 mL) pen injector active aspirin 325 mg tablet active TAKE1 TABLET BY MOUTH ONCE DAILY lisinopril-hydroch lorothiazide 20-25 mg tablet active Take 1 tablet by mouth once a day metformin 500 mg tablet extended release 24 hr active Take 1 tablet by mouth once a day pravastatin 40 mg tablet active Take 1 tablet by mouth once a day sertraline 50 mg tablet active Take 1 tablet by mouth once a day albuterol sulfate 90 mcg/actuation HFA aerosol inhaler active as needed SOCIAL HISTORY Date Observation Value Provider number of grandchildren Juan C Dejesus MD cigarette use yes Juan C Dejesus MD smoking status Former smoker Juan C Dejesus MD cigarette use yes Alonso Johnson i smoking status Former smoker Alonso cardozo cigarette use yes Colin powers smoking status Former smoker Colin Jimsagrario rday INSURANCE PROVIDERS Payer name Policy type / Coverage type [place] red green party ID [facility] [id number] ADVANCE DIRECTIVES Name Date DISCUSSED - NO DECISION MADE TREATMENT PLAN Date Name Performer Cardiology:This visi t has been a part of the consistent, comprehensive, and ongoing management of the chronic medical condition(s) listed above for the patient. BP today: 115/86 P rior BP: 127/81 (09/09/2023) Labs Reviewed: C reat: 0.78 (08/20/2023) C hol: 193 (08/20/2023) HDL: 65 (08/20/2023) LDL: 105 (08/20/2023) T (08/20/2023) Her updated medication list for this problem includes: Aspirin 325 Mg Tablet (Aspirin) ..... Take1 tablet by mouth once daily Lisinopril-hydrochlorothiazide 20-25 Mg Tablet (Lisinopril-hydrochlorothiazide) ..... Take 1 tablet by mouth once a day Juan C Dejesus MD Cardiology: H er updated medication list for this problem includes: Aspirin 325 Mg Tablet (Aspirin) ..... Take1 tablet by mouth once daily Lisinopril-hydrochlorothiazide 20-25 Mg Tablet (Lisinopril-hydrochlorothiazide) ..... Take 1 tablet by mouth once a day Juan C Dejesus MD Cardiology: H er updated medication list for this problem includes: Pravastatin 40 Mg Tablet (Pravastatin) ..... Take 1 tablet by mouth once a day Juan C Dejesus MD Cardiology Juan C Dejesus MD Cardiology:Cardiac c ath revealed normal coronary arteries. Pt's groin is well healed from procedure. BP is well controlled. I recommend to continue risk factor modification. CP is resolved. Pt will let us know if she has any more sx. Alonso Ansari Cardiology Alonso Ansari Cardiology: H er updated medication list for this problem includes: Pravastatin 40 Mg Tablet (Pravastatin) ..... Take 1 tablet by mouth once a day Alonso Ansari Cardiology: B P today: 127/81 P rior BP: 112/75 (07/31/2023) Labs Reviewed: C reat: 0.78 (08/20/2023) C hol: 193 (08/20/2023) HDL: 65 (08/20/2023) LDL: 105 (08/20/2023) T (08/20/2023) Her updated medication list for this problem includes: Aspirin 325 Mg Tablet (Aspirin) ..... Take1 tablet by mouth once daily Lisinopril-hydrochlorothiazide 20-25 Mg Tablet (Lisinopril-hydrochlorothiazide) ..... Take 1 tablet by mouth once a day Alonso Ansari Cardiology:Cardiac c ath revealed normal coronary arteries. Pt's groin is well healed from procedure. BP is well controlled. I recommend to continue risk factor modification. CP is resolved. Pt will let us know if she has any more sx. Alonso Ansari Cardiology: H er updated medication list for this problem includes: Pravastatin 40 Mg Tablet (Pravastatin) ..... Take 1 tablet by mouth once a day Alonso Ansari Cardiology: B P today: 112/75 Her updated medication list for this problem includes: Aspirin 325 Mg Tablet (Aspirin) ..... Take1 tablet by mouth once daily Lisinopril-hydrochlorothiazide 20-25 Mg Tablet (Lisinopril-hydrochlorothiazide) ..... Take 1 tablet by mouth once a day Alonso Tainari Cardiology:Pt had a recent admission to [facility] due to CP. 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 In view of above and her sx, will proceed with cardiac cath with possible intervention Alonso Elan Cardiology:Pt had a recent admission to [facility] due to CP. 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 In view of above and her sx, will proceed with cardiac cath with possible intervention Alonso Tainari Date Name Complete Echo PROTHROMBIN TIME WIT H INR LIPID PANEL CBC (INCLUDES DIFF/P LT) BASIC METABOLIC PANE L W/EGFR HISTORY OF PROCEDURES Procedure Date Procedure Name Provider Procedure Notes S tatus Complex e/m visit add on Juan C Dejesus MD completed EKG Juan C Dejesus MD completed EKG Juan C Dejesus MD completed
--- OUTSIDE RECORDS SUMMARY | 2024-09-28 15:39 | XMS_ITS | Clinical Summary ---
Author Organization [facility] [employer] Address [address] [place] [address] Care Team Providers Care Deburring Machine Operator Name Role Phone Janak Bernabe PA-C Primary Care Provide r Source Comments [facility],non-owned Affiliates and Associated Physician Practices is amultiple site organization consisting of ambulatory clinics and hospital sitesin [place], [place], [place] and [place]. This disclosure is being madepursuant to the Care Everywhere program and may not contain all information available regarding this patient. Last updated 18.[facility] [employer] Allergies Active Allergy Reactions Criticality Noted Date Comments Doxycycline Rash Low 10/09/2010 Erythromycin Rash Low 10/09/2010 Latex Anaphylaxis High 10/09/2010 Rash throat swelling Penicillins Anaphylaxis High 10/09/2010 Rash, throat swelling Sulfa Drugs Rash Low 10/09/2010 Medications * Be aware that medications may not be up to date on this document. Alwaysverify current medications with the patient. Medication Sig Dispensed Refills Start Date End Date Status lisinopril (PRINIVIL; ZESTRIL) 10 MG tabletIndications:Hyp ertension Take 10 mg by mouth daily. Indications: High Blood Pressure Active loratadine (CLARITIN) 10 MG tablet Take 10 mg by mouth daily. Active fluticasone propionate (FLONASE) 50 MCG/ACT nasal sprayIndications:Seas onal Allergic Rhinitis Igo 1 Igo into each nostril daily. Indications: Hayfever Active albuterol HFA (PROVENTIL;VENTOLIN;P ROAIR) 108 (90 BASE) MCG/ACT inhalerIndications:Br onchospastic Disease Inhale 2 Puffs by mouth every 4 hours as needed. Indications: Disease involving Spasms of the Lungs 10/09/2010 Active albuterol (PROVENTIL;VENTOLIN) (5 MG/ML) 0.5% nebulizer solutionIndications:A cute Bronchospastic Disease Inhale 2.5 mg by mouth 4 times daily as needed. Indications: Acute Bronchospasm Active oxycodone-acetaminoph en (PERCOCET) 5-325 MG tablet Take 1 Tab by mouth every 6 hours as needed for Pain. 25 Tab 0 10/12/2010 Active Active Problems No known active problems Social History Tobacco Use Types Packs/Day Years Used Date Smoking Tobacco: Former Cigarettes Q uit: 10/09/1992 Alcohol Use Standard Drinks/Week Comments No 0 (1 standard drink = 0.6 oz pur e alcohol) Sex and Gender Information Value Date Recorded Sex Assigned at Not on file Gender Identity Not on file Sexual Orientation Not on file Last Filed Vital Signs Vital Sign Reading Time Taken Comments Blood Pressure 120/75 10/12/2010 6:45 AM CDT Pulse 78 10/12/2010 6:45 AM CDT Temperature 36.4 C (97.6 F) 10/12/2010 6:45 AM CDT Respiratory Rate 18 10/11/2010 4:35 PM CDT Oxygen Saturation 99% 10/10/2010 6:00 PM CDT Inhaled Oxygen Concentration 60% 10/10/2010 9 :15 AM CDT Weight 120.7 kg (266 lb) 10/10/2010 5:55 AM CDT Height 160 cm (5' 3 ) 10/10/2010 5:55 AM CDT Body Mass Index 47.12 10/10/2010 5:55 AM CDT Plan of Treatment Health Maintenance Due Date Last Done Comments COLOGUARD (AGES 45-75) - COL ON CA SCREENING 1973 COLON MONITORING 1973 COLONOSCOPY - COLON CA SCREENING 1973 CT COLONOGRAPHY - COLON CA SCREENING 1973 Colorectal Cancer Screening 1973 FIT - COLON CA SCREENING 1973 FLEX SIG - COLON CA SCREENING 1973 LIPID TESTING 1973 MAMMOGRAM 1973 PAP SMEAR 1973 HIV SCREENING 01/08/1988 HEPATITIS C SCREENING 01/03/1991 DTAP/TDAP/TD VACCINES (1 - Tdap) 01/08/1992 HEPATITIS B VACCINE (1 of 3 - 19+ 3-dose series) 01/08/1992 PNEUMOCOCCAL VACCINE 50+ (1 of 1 - PCV) 2023 ZOSTER VACCINE (1 of 2) 2023 COVID-19 VACCINE (1 - 2023-2 5 season) 2024 DEPRESSION SCREENING 06/24/2024 INFLUENZA VACCINE (Season Ended) 2025 HIB VACCINE Aged Out No longer eligi ble based on patient's age to complete this topic HPV VACCINE Aged Out No longer eligi ble based on patient's age to complete this topic MENINGOCOCCAL (Group B) VACC INE SHARED DECISION-MAKING Aged Out No longer eligibl e based on patient's age to complete this topic MENINGOCOCCAL GROUPS A/C/Y/W VACCINE Aged Out No longer eligible b ased on patient's age to complete this topic PNEUMOCOCCAL VACCINE Aged Out No long er eligible based on patient's age to complete this topic Advance Directives * Full Code (Latest Code Status on File) Date Activated Date Inactivated Comments 10/10/2010 9:05 AM 10/12/2010 9:38 PM Care Teams Deburring Machine Operator Relationship Specialty Start Date End Date Janak Bernabe PA-C [address] [place] [address] PCP - General 02/23/22
== END 2024-09-28 13:40 | disposition home or self-care (01) ==
PROVIDERS: PCP Internal Medicine; Visit Provider Internal Medicine
DX: R13.10 Dysphagia, unspecified (principal)
CPT/HCPCS: 92611